=== PATIENT | female | born 1940 | race Caucasian/White ===

== ENCOUNTER → 2017-04-26 | Outpatient (CLI) | payer MEDICARE, BC ==
[2014-09-11 11:02] VITALS: BP 125/76
[~2017-04-26] MED LIST: ACET325T9 PO; ALBU8.5H6 IH; ASPI-482 PO; CALC600T23 PO; CARV3.122 PO; DICL100G18 TP; DOCU100C28 PO; FURO20TA3 PO; ISOS20TA2 PO; LEVO112T4 PO; LOSA100T6 PO; MULT-658 PO; NITR0.4T SL; OMEG10005 PO; OMEP40CA5 PO; POTA20TA12 PO; PRAV80TA2 PO; [UNRECOGNIZED DRUG - CODE] PO
--- NOTE | 2017-04-26 15:04 | RAD ---
2 view chest 04/26/2017 Clinical indication: Cough. Comparison: Chest 01/27/2016. Findings: Stable enlargement of the cardiac silhouette without pulmonary venous congestion. No pleural effusion, pneumothorax or focal consolidation. Moderate left glenohumeral arthrosis. There is slight offset at the lateral right fifth rib. Impression: 1. Mild cardiomegaly without alvina pulmonary edema or consolidating pneumonia. 2. Possible age-indeterminate minimally displaced lateral right fifth rib fracture. Correlation with point tenderness is recommended.
== END | disposition home or self-care (01) ==
LOC: PMG 11:38
PROVIDERS: ATTEND Nurse Practitioner Family
DX: R05 Cough (principal); I51.7 Cardiomegaly; J45.901 Unspecified asthma with (acute) exacerbation; I10 Essential (primary) hypertension
CPT/HCPCS: 71046

== ENCOUNTER → 2017-10-23 | Outpatient (CLI) | payer MEDICARE, BC ==
[2014-09-11 11:02] VITALS: BP 125/76
[2017-10-23 11:13] LABS: ALBUMIN 3.5 g/dL (3.4-5.0); ALBUMIN/GLOBULIN RATIO 1.1 (1.0-1.7); CREATININE 0.8 mg/dL (0.6-1.0); GFR 69.6; POTASSIUM 4.1 mmol/L (3.5-5.1); TOTAL BILIRUBIN 0.7 mg/dL (0.2-1.0); TOTAL PROTEIN 6.8 g/dL (6.4-8.2)
[2017-10-23 14:16] LABS: FREE T4 1.53 ng/dL (0.76-1.46); THYROID STIM HORMONE (TSH) 2.071 uIU/mL (0.358-3.740)
== END | disposition home or self-care (01) ==
LOC: LAB 10:11
PROVIDERS: ATTEND Nurse Practitioner
DX: E78.5 Hyperlipidemia, unspecified (principal); E03.9 Hypothyroidism, unspecified; I10 Essential (primary) hypertension; E78.00 Pure hypercholesterolemia, unspecified; Z90.710 Acquired absence of both cervix and uterus
CPT/HCPCS: 36415; 80053; 80061; 84439; 84443

== ENCOUNTER → 2017-12-24 | Outpatient (CLI) | payer MEDICARE, BC ==
[2014-09-11 11:02] VITALS: BP 125/76
[~2017-12-24] MED LIST changes: -LOSA100T6 PO; +LOSA100T7 PO
--- NOTE | 2017-12-24 16:49 | RAD ---
CT HEAD WO CONTRAST Clinical indications: RIGHT SIDE HEADACHES COMPARISON: None available. Technique: Noncontrast axial cross sectional scanning of the head was performed. PQRS compliance Statement One or more of the following individualized dose reduction techniques were utilized for this study: 1. Automated exposure control 2. Adjustment of the mA and/or kV according to patient size 3. Use of iterative reconstruction technique Findings: No acute intracranial hemorrhage or midline shift or mass-effect or hydrocephalus or extra-axial fluid collection is seen. Mild bilateral periventricular white matter hypodensity is seen consistent with chronic small vessel ischemic disease in this age group. No sulci effacement is evident. No skull fracture or pneumocephalus is seen. No opacification of the mastoid sinuses or the middle ear cavities or the paranasal sinuses is seen. The maxillary sinuses are not completely seen in this study. Impression: No acute intracranial abnormality is seen. Electronically signed by: Wes Sheldon MD (12/24/2017 4:46 PM) [id number]
== END | disposition home or self-care (01) ==
LOC: CT 12:56
PROVIDERS: ATTEND Neuromusculoskeletal Medicine & OMM
DX: R51 Headache (principal); E78.5 Hyperlipidemia, unspecified; E78.00 Pure hypercholesterolemia, unspecified; I11.0 Hypertensive heart disease with heart failure; I50.9 Heart failure, unspecified; E03.9 Hypothyroidism, unspecified; J45.909 Unspecified asthma, uncomplicated; Z90.710 Acquired absence of both cervix and uterus
CPT/HCPCS: 36415; 70450; 85651

== ENCOUNTER → 2018-01-31 | Outpatient (CLI) | payer MEDICARE, BC ==
[2014-09-11 11:02] VITALS: BP 125/76
[2018-01-31 12:00] LABS: ALBUMIN 3.5 g/dL (3.4-5.0); ALBUMIN/GLOBULIN RATIO 1.1 (1.0-1.7); CALCIUM 8.5 mg/dL (8.5-10.1); CREATININE 0.8 mg/dL (0.6-1.0); GFR 69.6; POTASSIUM 3.8 mmol/L (3.5-5.1); TOTAL BILIRUBIN 0.8 mg/dL (0.2-1.0); TOTAL PROTEIN 6.7 g/dL (6.4-8.2)
== END | disposition home or self-care (01) ==
LOC: LAB 10:50
PROVIDERS: ATTEND Nurse Practitioner
DX: E78.5 Hyperlipidemia, unspecified (principal)
CPT/HCPCS: 36415; 80053; 80061

== ENCOUNTER → 2018-07-11 | Outpatient (CLI) | payer MEDICARE, BC ==
[2014-09-11 11:02] VITALS: BP 125/76
[~2018-07-11] MED LIST changes: -CARV3.122 PO; +CARV3.1230 PO; +IOHEXOL 240 MG/ML 50ML VIAL. ONE; +IOHEXOL 240 MG/ML 50ML VIAL. PO ONE; +IOHEXOL 300 MG/ML 75 ML VIAL. IV ONE; +LOSA100T14 PO; -LOSA100T7 PO
[2018-07-11 10:44] LABS: CREATININE 0.8 mg/dL (0.6-1.0); GFR 69.6
--- NOTE | 2018-07-11 12:56 | RAD ---
PQRS Compliance Statement: One or more of the following individualized dose reduction techniques were utilized for this examination: 1. Automated exposure control 2. Adjustment of the mA and/or kV according to patient size 3. Use of iterative reconstruction technique CT abdomen/pelvis with contrast 07/11/2018 11:28 AM INDICATION: Change in bowel habits. Colostomy for 4 years due to diverticulitis. COMPARISON: None available TECHNIQUE: Multiple axial CT images of the abdomen and pelvis were obtained after the intravenous administration of 75 mL Omnipaque 300. Coronal and sagittal reformats are provided. FINDINGS: Small peripheral areas of consolidation within the costophrenic angles most favors subsegmental atelectasis. Heart size is borderline enlarged. Liver, spleen and pancreas are normal in appearance. Mild nodularity of the adrenal glands is noted and stable dating back to April 24, 2012 suggestive of adenomatous hyperplasia. Gallbladder surgically absent. No significant intrahepatic or extrahepatic biliary ductal dilatation. The portable venous system appears patent. Abdominal aorta is normal in course and caliber. There are no pathologically enlarged lymph nodes in abdomen and pelvis. There is no free fluid or free intraperitoneal air. Oral contrast was administered. Opacified bowel loops since her normal mucosal fold pattern. There are no dilated small large bowel. There is a left lower quadrant ostomy. There is a large parastomal hernia measuring approximately 4.6 cm at the fascial defect. There is a small fat-containing umbilical hernia measuring 1.6 cm. Contrast is identified within the rectum, possibly from prior retrograde instillation. Distal bowel loops are normal in appearance. Appendix appears surgically absent. There is a simple appearing renal cyst in the superior pole left kidney measuring 3.0 cm . The kidneys enhance symmetrically. There is no suspicious renal mass. There is no hydronephrosis. There are no suspected calculi within the kidneys, ureters or urinary bladder. Urinary bladder is within normal limits given degree of distention. No suspicious pelvic mass is identified. There is levoconvex scoliosis of the lumbar spine. There is chronic appearing superior endplate compression deformity involving L2 with 25% height loss. Superior plate Schmorl's node at L5 appears progressed, chronic appearing. IMPRESSION: 1. Left lower quadrant ostomy is identified without evidence for bowel obstruction or inflammation. There is a large parastomal hernia without dilated small bowel loops. 2. Superior plate compression deformity involving L2 with 25% height loss is new from prior examination, however appears chronic. Electronically signed by: Tayler Bradford MD (07/11/2018 12:53 PM) [id number]
== END | disposition home or self-care (01) ==
LOC: CT 10:06
PROVIDERS: ATTEND Internal Medicine Gastroenterology
DX: K43.5 Parastomal hernia without obstruction or gangrene (principal); K42.9 Umbilical hernia without obstruction or gangrene; N28.1 Cyst of kidney, acquired; I51.7 Cardiomegaly; M43.8X6 Other specified deforming dorsopathies, lumbar region
CPT/HCPCS: 36415; 74177; 82565; 84520; Q9966; Q9967

== ENCOUNTER → 2018-08-30 | Outpatient (CLI) | payer MEDICARE, BC ==
[2014-09-11 11:02] VITALS: BP 125/76
[~2018-08-30] MED LIST changes: -IOHEXOL 240 MG/ML 50ML VIAL. ONE; -IOHEXOL 240 MG/ML 50ML VIAL. PO ONE; -IOHEXOL 300 MG/ML 75 ML VIAL. IV ONE
[2018-08-30 09:36] LABS: ALBUMIN 3.6 g/dL (3.4-5.0); ALBUMIN/GLOBULIN RATIO 1.2 (1.0-1.7); CREATININE 0.8 mg/dL (0.6-1.0); GFR 69.4; POTASSIUM 3.7 mmol/L (3.5-5.1); TOTAL BILIRUBIN 0.9 mg/dL (0.2-1.0); TOTAL PROTEIN 6.7 g/dL (6.4-8.2)
== END | disposition home or self-care (01) ==
LOC: LAB 08:17
PROVIDERS: ATTEND Nurse Practitioner
DX: E78.5 Hyperlipidemia, unspecified (principal)
CPT/HCPCS: 36415; 80053; 80061

== ENCOUNTER → 2019-02-13 | Outpatient (CLI) | payer MEDICARE, BC ==
[2014-09-11 11:02] VITALS: BP 125/76
[~2019-02-13] MED LIST changes: -NITR0.4T SL; +NITR0.4T24 SL; +OMEP40CA45 PO; -OMEP40CA5 PO
--- NOTE | 2019-02-14 09:30 | RAD ---
Examination: KNEE LEFT 2V, KNEE STANDING BILAT AP History: Left knee pain Comparison/Correlation: None Findings: Standing PA frontal view of the knees was obtained. Lateral and patellar sunrise views of the left knee were provided. Bilateral knee joint prostheses are intact with no evidence of loosening. No fracture or bony destruction. No left knee joint effusion. Impression: Bilateral knee joint prostheses are intact. Electronically signed by: Jam Brewer MD (02/14/2019 9:27 AM) [facility]
== END | disposition home or self-care (01) ==
LOC: DXRAD 13:37
PROVIDERS: ATTEND Orthopaedic Surgery
DX: M25.562 Pain in left knee (principal)
CPT/HCPCS: 73560; 73565

== ENCOUNTER → 2019-03-31 | Outpatient (CLI) | payer MEDICARE, BC ==
[2014-09-11 11:02] VITALS: BP 125/76
[2019-03-31 12:40] LABS: ALBUMIN 2.8 g/dL (3.4-5.0); ALBUMIN/GLOBULIN RATIO 0.8 (1.0-1.7); CALCIUM 8.1 mg/dL (8.5-10.1); CREATININE 0.6 mg/dL (0.6-1.0); GFR 96.7; POTASSIUM 3.7 mmol/L (3.5-5.1); TOTAL BILIRUBIN 0.5 mg/dL (0.2-1.0); TOTAL PROTEIN 6.3 g/dL (6.4-8.2)
== END | disposition home or self-care (01) ==
LOC: LAB 11:13
PROVIDERS: ATTEND Nurse Practitioner
DX: E78.5 Hyperlipidemia, unspecified (principal)
CPT/HCPCS: 36415; 80053; 80061

== ENCOUNTER 2020-12-10 14:09 | Inpatient (IN) | payer MEDICARE, BC ==
[~2020-12-10] VITALS: Ht 167.6 cm; Wt 93.2 kg
[~2020-12-10 14:09] MED LIST changes: -ISOS20TA2 PO; +ISOS20TA6 PO; -OMEP40CA45 PO; +OMEP40CA7 PO
[2020-12-10 15:38] LABS: BASO # 0.1 x10^3/uL (0.0-0.2); BASO % 1 % (0-3); EOS # 0.2 x10^3/uL (0.0-0.7); EOS % 1 % (0-3); HEMATOCRIT 32.5 % (36.0-47.0); HEMOGLOBIN 10.7 g/dL (12.0-15.5); LYMPH # 0.9 x10^3/uL (1.0-4.8); LYMPH % 6 % (24-48); MEAN CORPUSCULAR HEMOGLOBIN 32 pg (25-35); MEAN CORPUSCULAR HGB CONC 33 g/dL (31-37); MEAN CORPUSCULAR VOLUME 98 fL (79-100); MONO # 1.5 x10^3/uL (0.0-1.1); MONO % 11 % (0-9); NEUT # 11.2 x10^3uL (1.8-7.7); NEUT % 81 % (31-73); PLATELET COUNT 283 x10^3/uL (140-400); RED BLOOD COUNT 3.32 x10^6/uL (3.50-5.40); RED CELL DISTRIBUTION WIDTH 13.9 % (11.5-14.5); WHITE BLOOD COUNT 13.8 x10^3/uL (4.0-11.0)
[2020-12-10 15:46] LABS: CALCIUM 8.5 mg/dL (8.5-10.1); CREATININE 1.4 mg/dL (0.6-1.0); GFR 36.2; POTASSIUM 4.5 mmol/L (3.5-5.1)
[2020-12-10 16:00] LABS: ALBUMIN/GLOBULIN RATIO 0.5 (1.0-1.7); C REACTIVE PROTEIN 242.1 mg/L (0-3.3); MAGNESIUM 2.8 mg/dL (1.8-2.4); PHOSPHORUS 4.6 mg/dL (2.6-4.7); TOTAL BILIRUBIN 0.3 mg/dL (0.2-1.0); TOTAL PROTEIN 6.1 g/dL (6.4-8.2)
[2020-12-10] MEDS ORDERED: IV NORMAL SALINE 1,000ML 1,000 ML IV ONE (17:00)
--- NOTE | 2020-12-10 17:11 | PHYS DOC ---
Past History Past Medical History: Arthritis, Asthma, Bronchitis, Diverticulitis, High Cholesterol, Hypertension, Hypothyroid Additional Past Medical Histor: Chronic wounds, allergies Past Surgical History: Cholecystectomy, Hysterectomy, Other Additional Past Surgical Histo: colectomy, colostomy Alcohol Use: None Drug Use: None General Adult EDM: Chief Complaint: WOUND CHECK HPI: HPI: Patient is a 80-year-old female brought in from her assisted living apartment by EMS for worsening chronic wounds. Patient has wounds on her posterior thighs as well as a decubitus ulcer has been worsening over the past few months. Has home health has been helping her with dressing changes. Her primary care provider had did an home visit and prescribed antibiotics which she has not started yet because she does mail order and they have not arrived. Patient denies any systemic complaints but complains of pain at the ulcer sites. Patient is wheelchair-bound but is able to care for herself at home. Review of Systems: Review of Systems: All other systems within normal limits except for as noted in the HPI Allergies: Allergies: Allergies Coded Allergies Type Severity Reaction Last Updated Verified No Known Drug Allergies 09/09/14 No Physical Exam: PE: Constitutional: Well developed, well nourished, no acute distress, non-toxic appearance. [] HENT: Normocephalic, atraumatic, bilateral external ears normal, nose normal. [] Eyes: PERRLA, conjunctiva normal, no discharge. [] Neck: No rigidity, supple, no stridor. [] Cardiovascular: Regular rate and rhythm, brisk cap refill [] Lungs & Thorax: Non labored symmetric respirations, no tachypnea or respiratory distress [] Abdomen: Soft, nondistended, colostomy with hernia in place normal-appearing stool. Skin: Warm, several decubitus ulcers in various stages of healing, stage IV decubitus ulcer that probes to bone on sacrum Back: Unremarkable Extremities: No deformities, range of motion grossly intact, no lower extremity edema [] Neurologic: Alert and oriented X 3, no focal deficits noted. [] Psychologic: Affect normal, judgement normal, mood normal. [] Current Patient Data: Labs: Laboratory Tests Test 12/10/20 15:10 White Blood Count 13.8 x10^3/uL (4.0-11.0) H Red Blood Count 3.32 x10^6/uL (3.50-5.40) L Hemoglobin 10.7 g/dL (12.0-15.5) L Hematocrit 32.5 % (36.0-47.0) L Mean Corpuscular Volume 98 fL (79-100) Mean Corpuscular Hemoglobin 32 pg (25-35) Mean Corpuscular Hemoglobin Concent 33 g/dL (31-37) Red Cell Distribution Width 13.9 % (11.5-14.5) Platelet Count 283 x10^3/uL (140-400) Neutrophils (%) (Auto) 81 % (31-73) H Lymphocytes (%) (Auto) 6 % (24-48) L Monocytes (%) (Auto) 11 % (0-9) H Eosinophils (%) (Auto) 1 % (0-3) Basophils (%) (Auto) 1 % (0-3) Neutrophils # (Auto) 11.2 x10^3uL (1.8-7.7) H Lymphocytes # (Auto) 0.9 x10^3/uL (1.0-4.8) L Monocytes # (Auto) 1.5 x10^3/uL (0.0-1.1) H Eosinophils # (Auto) 0.2 x10^3/uL (0.0-0.7) Basophils # (Auto) 0.1 x10^3/uL (0.0-0.2) Sodium Level 136 mmol/L (136-145) Potassium Level 4.5 mmol/L (3.5-5.1) Chloride Level 102 mmol/L (98-107) Carbon Dioxide Level 24 mmol/L (21-32) Anion Gap 10 (6-14) Blood Urea Nitrogen 70 mg/dL (7-20) H Creatinine 1.4 mg/dL (0.6-1.0) H Estimated GFR (Cockcroft-Gault) 36.2 BUN/Creatinine Ratio 50 (6-20) H Glucose Level 110 mg/dL (70-99) H Lactic Acid Level 1.9 mmol/L (0.4-2.0) Calcium Level 8.5 mg/dL (8.5-10.1) Phosphorus Level 4.6 mg/dL (2.6-4.7) Magnesium Level 2.8 mg/dL (1.8-2.4) H Total Bilirubin 0.3 mg/dL (0.2-1.0) Aspartate Amino Transferase (AST) 23 U/L (15-37) Alanine Aminotransferase (ALT) 49 U/L (14-59) Alkaline Phosphatase 113 U/L (46-116) C-Reactive Protein 242.1 mg/L (0-3.3) H NR-Lty-Y-Type Natriuretic Peptide 540 pg/mL (0-449) H Total Protein 6.1 g/dL (6.4-8.2) L Albumin 2.0 g/dL (3.4-5.0) L Albumin/Globulin Ratio 0.5 (1.0-1.7) L Vital Signs: Vital Signs Date Time Temp Pulse Resp B/P (MAP) Pulse Ox O2 Delivery O2 Flow Rate FiO2 12/10/20 14:10 97.7 78 85/48 (60) 89 EKG: EKG: [] Radiology/Procedures: Radiology/Procedures: [] Heart Score: C/O Chest Pain: No Risk Factors: Risk Factors: DM, Current or recent (<one month) smoker, HTN, HLP, family history of CAD, obesity. Risk Scores: Score 0 - 3: 2.5% MACE over next 6 weeks - Discharge Home Score 4 - 6: 20.3% MACE over next 6 weeks - Admit for Clinical Observation Score 7 - 10: 72.7% MACE over next 6 weeks - Early Invasive Strategies Course & Med Decision Making: Course & Med Decision Making Pertinent Labs and Imaging studies reviewed. (See chart for details) Antibiotics started in the emergency department for concerns of osteomyelitis due to her CRP (unable to check ESR this facility). Discussed hospitalist to transfer out for more intensive wound care. Pending CT [] Dragon Disclaimer: Dragon Disclaimer: This electronic medical record was generated, in whole or in part, using a voice recognition dictation system. Departure Departure: Impression: Primary Impression: Stage 4 decubitus ulcer Disposition: ADMITTED INPATIENT Admitting Physician: Gama Gallegos Condition: STABLE Referrals: SE HEMPHILL (PCP) SHEELA GUZMAN MD Dec 10, 2020 17:11
[2020-12-10] MEDS ORDERED: VANCOMYCIN 2 GM in IV NORMAL SALINE 500ML 500 ML IV ONE (17:15)
[2020-12-10] MEDS ORDERED: ACETAMINOPHEN 325 MG TABLET PO PRN (17:30)
[2020-12-10] MEDS ORDERED: ONDANSETRON PF 4 MG/2 ML VIAL. IVP PRN (17:30)
[2020-12-10] MEDS ORDERED: CEFEPIME HCL 2 GM in IV NORMAL SALINE 100ML 100 ML IV ONE (17:30)
--- NOTE | 2020-12-10 17:32 | RAD ---
Exam: CT pelvis without contrast INDICATION: Diabetic ulcer TECHNIQUE: Sequential axial images through the pelvis obtained without IV contrast. Sagittal and louise nal reformatted images were reconstructed from the axial data and reviewed. Exposure: One or more of the following in the visualized dose reduction techniques were utilized for this examination: 1. Automated exposure control 2. Adjustment of the MA and/or KV according to patient size 3. Use of iterative of reconstructive technique Comparisons: 07/11/2018 FINDINGS: There is a left lower quadrant ventral hernia which is large containing loops of large and small mart l. No evidence of obstruction is seen. Bladder is partially distended and appears unremarkable. Uterus is absent. No abnormal adnexal mass. Pelvic vasculature is normal caliber. No pelvic lymphadenopathy is identified. Right hip arthroplasty changes are noted. Extensive osseous remodeling degenerative change noted at t he left femoral head. Soft tissue ulcer overlying the sacrum posteriorly. Diffuse osteopenia. No erosive changes or cortica l disruption noted of the underlying sacrum. IMPRESSION: 1. Ulcer along overlying the sacrum posteriorly. No evidence for osteomyelitis identified on CT of t he underlying sacrum. 2. Extensive degenerative change with osseous remodeling at the left hip with near complete collapse of the femoral head. This is significantly progressed/new when compared to study in 2019. Other diff erential considerations include septic arthritis and less likely AVN. Correlate with appropriate labo ratory enzymes. 3. Large left lower quadrant ventral hernia containing loops of large and small bowel. No obstructio n. Electronically signed by: Rommel Kelley MD (12/10/2020 5:30 PM) [facility]
[2020-12-10] MEDS ORDERED: IV NORMAL SALINE 500ML 500 ML ONE (17:36)
[2020-12-10] MEDS ORDERED: VANCOMYCIN 1 GM VIAL. ONE (17:36)
[2020-12-10] MEDS ORDERED: IV NORMAL SALINE 100ML 100 ML ONE (17:37)
[2020-12-10] MEDS ORDERED: CEFEPIME HCL 2 GM VIAL IV ONE (17:37)
--- NOTE | 2020-12-10 21:40 | NUR ---
The patient, MARISSA LEPE, 80 y/o, F admitted by KIRT GARZA MD, was given written information regarding hospital policies, unit procedures and contact persons. Valuables were checked and logged. Call light at bedside. Pt states, "Please don't take pictures of my wounds now I'm exhausted. Please do them in the morning." Will continue to monitor.
[2020-12-10 21:42] VITALS: BP 138/70
[2020-12-10] MEDS: IV NORMAL SALINE 1,000ML 1,000 ML IV SCH (21:47)
[2020-12-10] MEDS: MORPHINE SULFATE 2 MG/ML DISP.SYRIN. IVP PRN (21:47)
[2020-12-10] MEDS: VANCOMYCIN PER PHARMACY MC PRN (22:39)
--- NOTE | 2020-12-10 22:40 | NUR ---
Pharmacy Vancomycin Dosing Note S:Consulted to monitor and dose vancomycin started 12/10/20. O:MARISSA LEPE is a 80 year old F with , decub . Height: 5 feet, 6 inches Weight: 89.1 kg Stewart Body Weight: 59.30 Adjusted Body Weight: 71.22 Dosing Weight: Other Antibiotics: cefepime LABS: Last BUN: 70 Last Creatinine: 1.4 Creatinine Clearance: 36 Last WBC: 13.8 Last Procalcitonin: Tmax (past 24 hours): Microbiology: I/O: Drug Levels: Last level: on at Last dose given at Vancomycin Dosing: Loading Dose: 2000 mg x1 Dosing Weight: Target Trough: 10-20 A: Based on: ht, wt and renal function P: 1. Begin Vancomycin 1250 mg IV q24h 2. Follow up Trough level on 12/12/20 at 1730 3. Pharmacy will continue to monitor, follow and adjust therapy as needed. YEVGENIY FALL, [facility], 12/10/20 [id number]
[2020-12-11] MEDS ORDERED: FERR-36 PO (01:58)
[2020-12-11] MEDS ORDERED: ASCO100T4 PO (01:58)
[2020-12-11] MEDS: CEFEPIME HCL 2 GM in IV NORMAL SALINE 100ML 100 ML IV SCH ×2 (05:22→17:35)
[2020-12-11] MEDS: IV NORMAL SALINE 1,000ML 1,000 ML IV SCH ×2 (05:22→16:08)
[2020-12-11] MEDS: MORPHINE SULFATE 2 MG/ML DISP.SYRIN. IVP PRN (06:42)
--- NOTE | 2020-12-11 06:50 | NUR ---
Pt has multiple wounds please see chart for pictures.
[2020-12-11 06:51] LABS: CALCIUM 8.3 mg/dL (8.5-10.1); CREATININE 0.8 mg/dL (0.6-1.0); POTASSIUM 4.7 mmol/L (3.5-5.1)
[2020-12-11 06:55] LABS: BASO % 0 % (0-3); EOS # 0.2 x10^3/uL (0.0-0.7); EOS % 2 % (0-3); HEMATOCRIT 32.6 % (36.0-47.0); HEMOGLOBIN 10.6 g/dL (12.0-15.5); LYMPH # 0.9 x10^3/uL (1.0-4.8); LYMPH % 7 % (24-48); MEAN CORPUSCULAR HEMOGLOBIN 32 pg (25-35); MEAN CORPUSCULAR HGB CONC 32 g/dL (31-37); MEAN CORPUSCULAR VOLUME 97 fL (79-100); MONO # 1.2 x10^3/uL (0.0-1.1); MONO % 10 % (0-9); NEUT # 9.5 x10^3uL (1.8-7.7); NEUT % 81 % (31-73); PLATELET COUNT 274 x10^3/uL (140-400); RED BLOOD COUNT 3.36 x10^6/uL (3.50-5.40); RED CELL DISTRIBUTION WIDTH 13.8 % (11.5-14.5); WHITE BLOOD COUNT 11.8 x10^3/uL (4.0-11.0)
[2020-12-11 10:16] VITALS: BP 130/72
[2020-12-11] MEDS ORDERED: ALBUTEROL SULFATE 8GM INHALER. IH PRN (13:45)
[2020-12-11] MEDS ORDERED: ALBUTEROL SULFATE 2.5 MG/3 ML NEBU. NEB PRN (14:00)
[2020-12-11] MEDS: ATORVASTATIN CALCIUM 20 MG TABLET PO SCH (14:55)
[2020-12-11] MEDS: oxyCODONE IR 5 MG TABLET PO PRN (14:55)
[2020-12-11] MEDS: LOSARTAN 50 MG TABLET. PO SCH (14:56)
[2020-12-11 15:00] VITALS: BP 168/87
--- NOTE | 2020-12-11 15:06 | HP ---
ADMIT DATE: 12/10/2020 HISTORY OF PRESENT ILLNESS: The patient is an 80-year-old female patient who was brought in from her Independent Living Facility at [facility] by EMS for worsening chronic wound. The patient has wounds on her posterior thigh as well as decubitus ulcer on her sacrum that has been worsening over the past few months. She has home health from [facility] that are helping her with dressing changes and her primary care provider has done home visit and prescribed antibiotic, which she has not started yet because she does made order, they have not arrived yet. The patient herself denied any systemic complaints, but complained of pain at the ulcer site. The patient is a wheelchair bound for the last 2 years. She stated that she is on wheelchair for most of the day. She is able to transfer from wheelchair to the toilet and from wheelchair to her recliner where she sleeps. She also get assistance from home health aide from the home health agencies that are helping her with her shower; however, the Independent Living Facility has assist her with fixing her meals, taking care of her laundry and cleaning the apartment. She denied, however, any chills, rigors or fever, was evaluated in the Emergency Room and has had lab work, showed that she has mild leukocytosis with white cell count of 13,800 with normochromic normocytic anemia. Her chemistry showed that she was dehydrated. Her BUN was 70, creatinine was 1.4. Her C-reactive protein was high at 242. Also, hypoalbuminemia and she was admitted and was started on IV antibiotic in the form of cefepime and vancomycin. Her CT scan of the pelvis showed that she has an ulcer overlying the sacrum posteriorly, no evidence of osteomyelitis identified on CT of the underlying sacrum. She has extensive degenerative changes of the osseous remodeling of the left hip with near complete collapse of the femoral head. This has significantly progressed and new when compared to study in 2019. Other differential consideration includes septic arthritis and this likely is a septic avascular necrosis. She has large left lower quadrant ventral hernia containing loops of large and small bowel with no obstruction. PAST MEDICAL HISTORY: Significant for history of diverticulitis, status post colectomy and diverting colostomy, hypertension, hypothyroidism. She has had hyperlipidemia, bronchial asthma, degenerative osteoarthritis and bilateral cataract, obviously has wounds in the posterior aspect of the right thigh and sacral decubitus ulcer. PAST SURGICAL HISTORY: Significant for cholecystectomy, hysterectomy, colectomy and colostomy. She has bilateral total knee arthroplasty and right total hip arthroplasty, thyroidectomy as well as colonoscopy. ALLERGIES: She has no known drug allergies. MEDICATIONS: She is currently on the following medication: She is on albuterol sulfate 2 puffs every 6 hours as needed, ferrous sulfate 325 mg daily, pravastatin sodium 80 mg at bedtime, isosorbide mononitrate 60 mg daily, carvedilol 3.125 mg twice a day, losartan potassium 100 mg daily, aspirin 81 mg once a day, diclofenac sodium 1 g twice a day, acetaminophen 650 mg at bedtime, furosemide 20 mg daily, omeprazole 40 mg daily, levothyroxine sodium 112 mcg once a day, ascorbic acid 100 mg daily, multivitamin with mineral 1 tablet once a day. FAMILY HISTORY: She is the only child. She has no brothers and sisters. Her father at age of 81 because of leukemia and mother at age of 91 with dementia and rheumatoid arthritis. SOCIAL HISTORY: She lives alone in an Independent Living Facility at [facility]. She has two sons. She has never smoked, does not drink alcohol. 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 REVIEW OF SYSTEMS: The patient denied any blurring of vision, but has bilateral cataracts that has not required any surgical intervention. Denied any glaucoma or macular degeneration. Denied any earache, tinnitus or sensory deafness. Denied any nosebleed, stuffy nose or postnasal drip. Denied any sore throat, sore tongue, toothache, hoarseness of voice or difficulty swallowing. Denied any nausea, vomiting, diarrhea or constipation. Denied any hematemesis, melena or hematochezia. Denied any dysuria, frequency or hematuria. Denied any chest pain, shortness of breath, orthopnea, paroxysmal nocturnal dyspnea. Denied any cough, phlegm or hemoptysis. PHYSICAL EXAMINATION: GENERAL: On arrival to the Emergency Room, she looked well and was clearly in no apparent respiratory distress. No pallor, jaundice, cyanosis or thyromegaly. No jugular venous distention. No lower limb edema. VITAL SIGNS: Her heart rate was 78, blood pressure was 85/48, temperature was 97.7, respiratory rate was 20 and oxygen saturation was 89% on room air. HEAD, EYES, EARS, NOSE, AND THROAT: Normocephalic, atraumatic. NECK: Supple. HEART: Showed normal first and second heart sounds. No gallop, rub or murmur. CHEST: Shows central trachea, equal bilateral expansion, air entry, vesicular breath sounds. No crepitation or rhonchi. ABDOMEN: Distended, soft with a colostomy in the left lower quadrant with a parastomal hernia. There is no tenderness, no guarding or rigidity. No organomegaly. All hernial orifice intact. Bowel sounds normal. NEUROLOGIC: She is awake, alert, responding appropriately. All cranial nerves intact. She moves extremities without difficulty, although she is mostly wheelchair bound. She has wounds on the anterior aspect of the left knee, posterior aspect of the right thigh and large sacral decubitus ulcer, more towards the left side. LABORATORY DATA: On arrival showed a serum sodium 136, potassium 4.5, chloride 102, bicarbonate 24, anion gap of 10, BUN 70, creatinine 1.4, estimated GFR was 36 mL per minute, her glucose 110, calcium was 8.5, phosphorus 4.6, magnesium was 2.8. Total bilirubin, AST, ALT, and alkaline phosphatase were normal. C-reactive protein was 242. Beta natriuretic peptide was 548. Total protein 6.1, albumin was 2 g/dL. White cell count was 15,800, hemoglobin 10.7, hematocrit 32.5, MCV was 98 and platelet count 283,000 with a manual differential showed 81% polymorphs, 6% lymphocytes and 11% monocytes. Her CT scan of the pelvis showed that there is a left lower quadrant ventral hernia, which is large containing loops of large and small bowel with no evidence of obstruction seen. Bladder is partially distended and appears unremarkable. Uterus is absent. No abnormal adnexal masses. Pelvic vasculature is normal in caliber. No pelvic inflammatory adenopathy is identified. The right arthroplasty changes are noted. Extensive osseous remodeling degenerative changes noted in her left femoral head and she has soft tissue ulcer overlying the sacrum posteriorly. She has diffuse osteopenia. No erosive changes or cortical disruption noted of the underlying sacrum. In summary, this is an 80-year-old female patient who lives in independent living. She has been wheelchair bound for the last 2 years and who was sent to the Emergency Room because of worsening wounds on her sacrum and posterior aspect of the right thigh. She was found to have acute kidney injury. She also has extensive degenerative changes of the osseous remodeling of the left hip with near complete collapse of the left femoral head. This has significantly progressed since last time. Other differential consideration includes septic arthritis are less likely, avascular necrosis. My plan is obviously to continue with IV antibiotic in the form of vancomycin and cefepime. Continue with IV fluid. Continue with pain management. I will reconcile all her medications and probably hold her Lasix. I will repeat all lab work. KATALINA DR: Jillian TID: [id number]
[2020-12-11 15:20] VITALS: BP 153/84
[2020-12-11] MEDS: CARVEDILOL 3.125 MG TABLET PO SCH (17:36)
[2020-12-11] MEDS: VANCOMYCIN 1.25 GM in IV NORMAL SALINE 250ML 250 ML IV SCH (18:29)
[2020-12-11 19:26] VITALS: BP 135/73
[2020-12-11] MEDS: LACTOBACILLUS RHAMNOSUS GG 1 CAPSULE. PO SCH (20:49)
[2020-12-11] MEDS: DICLOFENAC SODIUM 1% TOPICAL GEL 100GM TUBE. TP SCH (21:00)
[2020-12-11 23:38] VITALS: BP 138/89
[2020-12-12] MEDS: CEFEPIME HCL 2 GM in IV NORMAL SALINE 100ML 100 ML IV SCH ×2 (05:07→16:14)
[2020-12-12 05:37] VITALS: BP 144/86
--- NOTE | 2020-12-12 06:27 | NUR ---
Pt c/o discomfort in her legs in the late evening. Pain medication given. Pt slept soundly last night. Will continue to monitor.
[2020-12-12] MEDS: PANTOPRAZOLE 40 MG TABLET. PO SCH (07:40)
[2020-12-12] MEDS: ASPIRIN ENTERIC COATED 81 MG TABLET.DR. PO SCH (07:40)
[2020-12-12] MEDS: LOSARTAN 50 MG TABLET. PO SCH (07:40)
[2020-12-12] MEDS: DICLOFENAC SODIUM 1% TOPICAL GEL 100GM TUBE. TP SCH ×2 (07:41→20:29)
[2020-12-12] MEDS: LACTOBACILLUS RHAMNOSUS GG 1 CAPSULE. PO SCH ×2 (07:41→20:29)
[2020-12-12] MEDS: ASCORBIC ACID 500 MG TABLET PO SCH (07:41)
[2020-12-12] MEDS: ATORVASTATIN CALCIUM 20 MG TABLET PO SCH (07:41)
[2020-12-12] MEDS: FERROUS SULFATE 325 MG TABLET. PO SCH (07:41)
[2020-12-12] MEDS: CARVEDILOL 3.125 MG TABLET PO SCH ×2 (07:41→16:13)
[2020-12-12] MEDS: MULTIVITAMIN with MINERAL TABLET. PO SCH (07:41)
[2020-12-12 09:18] LABS: ALBUMIN 1.5 g/dL (3.4-5.0); ALBUMIN/GLOBULIN RATIO 0.4 (1.0-1.7); CALCIUM 8.5 mg/dL (8.5-10.1); CREATININE 0.7 mg/dL (0.6-1.0); GFR 80.5; POTASSIUM 4.6 mmol/L (3.5-5.1); TOTAL BILIRUBIN 0.4 mg/dL (0.2-1.0); TOTAL PROTEIN 5.6 g/dL (6.4-8.2)
[2020-12-12] MEDS: oxyCODONE IR 5 MG TABLET PO PRN ×2 (10:25→19:31)
[2020-12-12 10:59] LABS: HEMATOCRIT 37.1 % (36.0-47.0); HEMOGLOBIN 11.9 g/dL (12.0-15.5); RED BLOOD COUNT 3.68 x10^6/uL (3.50-5.40); RED CELL DISTRIBUTION WIDTH 14.6 % (11.5-14.5); WHITE BLOOD COUNT 13.1 x10^3/uL (4.0-11.0)
[2020-12-12 11:15] VITALS: BP 135/74
[2020-12-12] MEDS: DOCUSATE SODIUM 100 MG CAPSULE PO SCH (13:10)
[2020-12-12 15:21] VITALS: BP 147/87
--- NOTE | 2020-12-12 15:44 | PN ---
DATE: 12/12/2020 SUBJECTIVE: The patient is resting, slightly propped up in bed, in no apparent respiratory distress. Her main complaint is constipation. Her pain is much better controlled now that she is on oxycodone. PHYSICAL EXAMINATION: GENERAL: On examining her, she was pale, but no jaundiced, cyanosed. No lymphadenopathy, no thyromegaly, no jugular venous distention, no lower limb edema. VITAL SIGNS: Her heart rate was 80, blood pressure was 135/74, temperature 97.5, respiratory rate was 18 and oxygen saturation was 94%. HEENT: Normocephalic, atraumatic. NECK: Supple. HEART: Normal first and second heart sounds, no gallop or murmur. CHEST: Clear to auscultation. No crepitation or rhonchi. ABDOMEN: Distended, soft with a colostomy bag in the left lower quadrant with a parastomal hernia. There is no tenderness. No guarding or rigidity. No organomegaly. All hernial orifice intact. Bowel sounds normal. NEUROLOGIC: She is awake, alert, responding appropriately. All cranial nerves intact. He moves all extremities without difficulty. She apparently is mostly bedbound, wheelchair bound. SKIN: Examination of the skin showed that the patient has multiple wounds in the anterior aspect of the left knee, posterior aspect of the right thigh and a large sacral decubitus ulcer, more towards the left side. Her intake was 1900, output was 350. LABORATORY DATA: Her lab work this morning showed a white cell count of 13,000, hemoglobin 11.9, hematocrit 37, MCV 101 and platelet count 235,000. Her chemistry showed that her serum sodium was 136, potassium 4.6, chloride 105, bicarbonate 22, anion gap of 9, BUN 23, creatinine 0.7. Estimated GFR was 80 mL per minute. Her glucose was 96, calcium was 8.5. Total bilirubin, AST, ALT, alkaline phosphatase were normal. Total protein was 5.6, albumin was 1.5. ASSESSMENT: 1. Acute kidney injury, resolving. Her creatinine came down from 1.4 to 0.7, BUN came down from 17 to 23. 2. The patient has multiple wounds including stage IV sacral decubitus ulcer. She also has wounds on the posterior aspect of the right thigh as well as anterior aspect of the left knee joint. 3. The patient had degenerative disk disease and functional paraplegia, history of diverticulitis, status post partial colectomy and diverting colostomy, hypertension, hypothyroidism, hyperlipidemia, bronchial asthma. PLAN: To continue with wound care. Continue with IV antibiotic. Continue with pain management. I will consult the social media specialist to see when she qualifies to go to [facility] to continue with IV antibiotic and wound care. ОЛЬГА DR: Jillian TID: [id number]
[2020-12-12 18:06] LABS: VANC TR 12.3 mcg/mL (10.0-20.0)
[2020-12-12] MEDS: VANCOMYCIN 1.25 GM in IV NORMAL SALINE 250ML 250 ML IV SCH (18:07)
[2020-12-12] MEDS: VANCOMYCIN PER PHARMACY MC PRN (18:20)
[2020-12-12 19:15] VITALS: BP 149/92
[2020-12-12 22:30] VITALS: BP 145/86
[2020-12-13] MEDS: CEFEPIME HCL 2 GM in IV NORMAL SALINE 100ML 100 ML IV SCH ×2 (04:56→16:22)
[2020-12-13] MEDS: oxyCODONE IR 5 MG TABLET PO PRN (04:57)
[2020-12-13 05:40] VITALS: BP 156/89
--- NOTE | 2020-12-13 06:05 | NUR ---
Pt awake in bed watching TV at change of shift. Pt is A&Ox4, able to make needs known. Pt requesting PRN pain medications fro multiple wounds, Oxycodone given. Pt refused HS snack, but did take HS medication without difficulty. Pt slept great during night. Purewick in place with good output noted. But pt still incont of urine, soaking wound dressings. 16F Man catheter placed using aseptic technique. Dressing change completed to multiple sacrum, coccyx and thigh wounds. Pt refused Q2 turning, stating "I just got comfortable..I have this special bed for that. I can't lay on my sides... I hurt too bad!" Pt is on E700 specialty wound bed, but still encouraged to turn.
[2020-12-13] MEDS: DOCUSATE SODIUM 100 MG CAPSULE PO SCH (07:51)
[2020-12-13] MEDS: ASPIRIN ENTERIC COATED 81 MG TABLET.DR. PO SCH (07:51)
[2020-12-13] MEDS: MULTIVITAMIN with MINERAL TABLET. PO SCH (07:51)
[2020-12-13] MEDS: CARVEDILOL 3.125 MG TABLET PO SCH ×2 (07:51→16:22)
[2020-12-13] MEDS: LACTOBACILLUS RHAMNOSUS GG 1 CAPSULE. PO SCH ×2 (07:51→19:33)
[2020-12-13] MEDS: ASCORBIC ACID 500 MG TABLET PO SCH (07:52)
[2020-12-13] MEDS: ATORVASTATIN CALCIUM 20 MG TABLET PO SCH (07:52)
[2020-12-13] MEDS: LOSARTAN 50 MG TABLET. PO SCH (07:52)
[2020-12-13] MEDS: PANTOPRAZOLE 40 MG TABLET. PO SCH (07:52)
[2020-12-13] MEDS: FERROUS SULFATE 325 MG TABLET. PO SCH (07:52)
[2020-12-13] MEDS: DICLOFENAC SODIUM 1% TOPICAL GEL 100GM TUBE. TP SCH ×2 (07:52→19:33)
[2020-12-13] MEDS ORDERED: POLYETHYLENE GLYCOL 3350 17 GM PACKET. PO SCH (09:00)
[2020-12-13 10:50] VITALS: BP 139/79
[2020-12-13 14:50] VITALS: BP 158/86
[2020-12-13] MEDS ORDERED: MAGNESIUM CITRATE 296 ML SOLUTION. PO PRN (15:00)
[2020-12-13] MEDS: VANCOMYCIN 1.25 GM in IV NORMAL SALINE 250ML 250 ML IV SCH (18:14)
[2020-12-13 19:19] VITALS: BP 140/88
--- NOTE | 2020-12-13 19:56 | NUR ---
PT IS TRANSFERRING TO [facility] FOR UN STAGEABLE WOUND AND SURGICAL DEBRIDEMENT. REPORT WAS CALLED TO [facility]. PATRICK RN WAS GIVEN REPORT FROM THIS RN. PT WAS GIVEN NIGHT MEDS BEFORE TRANSPORT. PT IS ON ROOM AIR ABLE TO EXPRESS OWN CONCERNS. PT HAS 16F PRESTON AND COLOSTOMY. PT LEFT WITH ALL BELONGINGS.
--- NOTE | 2020-12-13 23:05 | PN ---
DATE: 12/13/2020 SUBJECTIVE: The patient is resting, slightly propped up in bed, no apparent distress, stated that her pain is much better controlled; however, she continued to be constipated. PHYSICAL EXAMINATION: GENERAL: When I examined her, she was pale, but no jaundice, cyanosis, no lymphadenopathy, no thyromegaly, no jugular venous distention. No limb edema. VITAL SIGNS: Her heart rate was 63, blood pressure 158/86, temperature 97.9, respiratory rate was 20 and oxygen saturation was 99% on room air. HEAD, EYES, EARS, NOSE, AND THROAT: Normocephalic, atraumatic. NECK: Supple. HEART: Showed normal first and second heart sounds. No gallop, rub or murmur. CHEST: Clear to auscultation. No crepitation or rhonchi. ABDOMEN: Markedly distended, soft with a colostomy bag in the left lower quadrant and parastomal hernia. NEUROLOGIC: She is awake, alert, responding appropriately. She moves upper extremities without difficulty. She has functional paraplegia. She has an indwelling Man catheter. The patient has multiple wounds on her anterior aspect of the left knee, posterior aspect of the right thigh and large sacral decubitus ulcer, more towards the left side. Her intake was 3790, output was 1450. LABORATORY DATA: As of yesterday showed a white cell count of 13,000, hemoglobin 12, hematocrit 37, MCV 101 and platelet count of 235,000. Her serum sodium was 136, potassium 4.6, chloride 105, bicarbonate 22, anion gap of 9, BUN 23, creatinine 0.7. Estimated GFR was 80 mL per minute. His glucose was 96, calcium was 8.5. Total bilirubin, AST, ALT, alkaline phosphatase were normal. Total protein 5.6, albumin was 1.6. ASSESSMENT: 1. Acute kidney injury, resolving. Her creatinine is down from 1.4 to 0.7, BUN down from 70 to 23. 2. The patient has multiple wounds including stage IV sacral decubitus ulcer. She also has wounds in the posterior aspect of the right thigh as well as anterior aspect of the left knee joint. 3. The patient has degenerative disk disease and functional paraplegia. 4. History of diverticulitis, status post partial colectomy and diverting colostomy. 5. Hypertension. 6. Hypothyroidism. 7. Hyperlipidemia. 8. Bronchial asthma. PLAN: Continue with wound care ____ her wounds. Continue IV antibiotic. Continue pain management. I will add magnesium citrate as she continued to be constipated. YUKI/RICARDA DR: Jillian TID: [id number]
--- NOTE | 2020-12-14 10:02 | NUR ---
Wound/Ostomy Care Wound Type/Assessment: Wound consult for multiple pressure ulcers. Pt has multiple stage II, III, and unstageable PU to bilateral buttocks, thighs, and sacrum. Left sacral wound is unstable eschar with foul odor, unable to visualize base. Right sacral wound is deep with large amount of drainage. Dr Gallegos assessed wounds with team and agrees patient needs surgical debridement, will initiate transfer to [facility]. Treatment Recommendations/Plan: Left sacrum and right posterior thigh- medihoney, xeroform, foam/ABD. left and right buttocks- hydrocolloid All other wounds- xeroform, abd and tape. Education provided: Pt educated on POC and PU prevention Offloading surface/device: Pt will need P500 bed Recommended Referrals/Tests: transfer to [facility] Discharge Recommendations for dressings: see above
== END 2020-12-13 20:00 | disposition short-term general hospital (02) | DRG 682 ==
LOC: ER 14:09 → 1 SOUTH 17:28
PROVIDERS: ADMIT Internal Medicine; ATTEND Internal Medicine
DX: N17.9 Acute kidney failure, unspecified (principal); L89.154 Pressure ulcer of sacral region, stage 4; E43 Unspecified severe protein-calorie malnutrition; M00.9 Pyogenic arthritis, unspecified; D64.9 Anemia, unspecified; D72.829 Elevated white blood cell count, unspecified; E78.00 Pure hypercholesterolemia, unspecified; E78.5 Hyperlipidemia, unspecified; E86.0 Dehydration; E88.09 Other disorders of plasma-protein metabolism, not elsewhere classified; E89.0 Postprocedural hypothyroidism; F44.4 Conversion disorder with motor symptom or deficit; I10 Essential (primary) hypertension; J45.909 Unspecified asthma, uncomplicated; K43.9 Ventral hernia without obstruction or gangrene; Z20.822 Contact with and (suspected) exposure to COVID-19; K59.00 Constipation, unspecified; Z80.6 Family history of leukemia; Z90.49 Acquired absence of other specified parts of digestive tract; Z90.710 Acquired absence of both cervix and uterus; Z93.3 Colostomy status; Z96.641 Presence of right artificial hip joint; Z96.653 Presence of artificial knee joint, bilateral; Z99.3 Dependence on wheelchair; Z60.2 Problems related to living alone; M19.90 Unspecified osteoarthritis, unspecified site; Z68.33 Body mass index [BMI] 33.0-33.9, adult
CPT/HCPCS: 36415; 72192; 80048; 80053; 80202; 83605; 83735; 83880; 84100; 85025; 85027; 86140; 87040; 87071; 87075; 87076; 87077; 87186; 87426; J0692; J2270; J3370; J7040; J7050; U0003; 99285-25; J7030